=== PATIENT | female | born 1990 | race Hispanic/Latino ===

== ENCOUNTER 2020-05-07 08:29 | Outpatient (CLI) | payer OTHER, SELFPAY ==
--- NOTE | 2020-05-07 09:04 | PC.NURSE ---
called Dr. Burr notified pt here for R/O ROM. Negative ROM Plus, no contractions, FHTs 155 per Doppler. discharge order received
--- NOTE | 2020-05-11 10:41 | PM.OBTRLD ---
OB - Triage/Final Diagnosis Visit Information Comments/Additional reasons for admission: I have assessed the risk for this patient, Maria Victoria Wong, and determined that she would benefit from observation care. Final Diagnosis (1) False labor: Code(s): O47.9 - False labor, unspecified Status: Acute
== END 2020-05-07 09:07 | disposition home or self-care (01) ==
LOC: ANHOBOP 08:40 → ANHOBPP 08:41
PROVIDERS: PCP Family Medicine; Visit Provider Obstetrics & Gynecology
DX: O41.8X90 Other specified disorders of amniotic fluid and membranes, unspecified trimester, not applicable or unspecified (principal); Z3A.00 Weeks of gestation of pregnancy not specified
CPT/HCPCS: 84112; 99199

== ENCOUNTER 2020-07-03 10:25 | Outpatient (RCR) | payer OTHER, SELFPAY ==
[2020-07-03 11:56] LABS: Basophils Percent Auto 0.2 % (0.2-1.2); Eosinophils Absolute Auto 0.1 K/mm3 (0-0.3); Eosinophils Percent Auto 0.6 % (0-4.4); Hematocrit 35.5 % (37.0-47.0); Hemoglobin 11.8 g/dL (12.0-15.0); Immature Granulocyte Absolute 0.06 K/mm3 (0.00-0.031); Immature Granulocyte Percent A 0.5 % (0-0.5); Lymphocytes Absolute Auto 1.75 K/mm3 (0.9-3.2); Lymphocytes Percent Auto 15.5 % (18.3-44.2); Mean Corpuscular HGB Conc 33.2 g/dl (32-36); Mean Corpuscular Hemoglobin 29.8 pg (26-34); Mean Corpuscular Volume 89.6 fl (80-100); Monocytes Absolute Auto 0.6 K/mm3 (0.1-0.6); Monocytes Percent Auto 5.6 % (2.6-8.5); Neutrophils Absolute Auto 8.8 K/mm3 (1.3-6.7); Neutrophils Percent Auto 77.6 % (45.5-73.1); Platelet Count Result 164 k/mm3 (150-375); Red Blood Count 3.96 M/mm3 (4.2-5.4); Red Cell Distribution Width 12.5 % (11.5-14.5); White Blood Count 11.3 K/mm3 (4.5-10.0)
[2020-07-03 12:11] LABS: Glucose 1 Hour PP 50gm Dose 90 mg/dL
[2020-07-03 12:48] LABS: HIV 1/2 Ab P24 Ag Result Negative (Negative)
[2020-07-05] MEDS: RHO(D) IMMUNE GLOBULIN 300 MCG/2 ML SYRINGE IM (09:00)
== END 2020-10-01 23:59 | disposition home or self-care (01) ==
LOC: ANHLAB 10:25
PROVIDERS: PCP Family Medicine; Visit Provider Obstetrics & Gynecology
DX: Z11.4 Encounter for screening for human immunodeficiency virus [HIV] (principal); Z29.13 Encounter for prophylactic Rho(D) immune globulin; O36.0120 Maternal care for anti-D [Rh] antibodies, second trimester, not applicable or unspecified; Z3A.00 Weeks of gestation of pregnancy not specified
CPT/HCPCS: 36415; 82947; 85025; 85461; 86703; 90384; 96372; G0432; J2790

== ENCOUNTER 2020-07-06 12:19 | Emergency (ER) | payer OTHER, SELFPAY ==
--- NOTE | 2020-07-06 12:21 | ED.WOUNDLAC ---
HPI - Wound/Laceration General Chief Complaint: Wound/Laceration Stated Complaint: laceration Time Seen by Provider: 07/06/20 12:28 Source: patient and RN notes reviewed Mode of arrival: ambulatory Limitations: no limitations History of Present Illness HPI narrative: 30-year-old female who is 27 weeks presents after stepping on a sharp tach at a department store. Reports the tach went through her shoe. She denies any open wounds, bleeding. Denies any musculoskeletal pain, decreased sensation, strength, range of motion. Reports this happened prior to arrival. Reports she is not up-to-date on her tetanus shot Extremity Location: Right: foot Place: other (store) Patient tetanus UTD: No Context: accidental Related Data Allergies Allergy/AdvReac Type Severity Reaction Status Date / Time No Known Allergies Allergy Verified 07/05/20 08:57 Review of Systems Review of Systems: Narrative: CONSTITUTIONAL: Denies malaise, chills, sweats, or fever. SKIN: Denies lacerations, abrasions. Reports puncture wound MUSCULOSKELETAL: Denies musculoskeletal pain, decreased range of motion or strength NEUROLOGIC: Denies numbness, weakness All systems reviewed & are unremarkable except as noted in HPI and below PMFSH Comments At time of signature, agree with nursing past medical, surgical, social and family history. There is no relevant family history pertinent to the presenting complaint Exam Narrative: Exam Narrative: GENERAL: Well-appearing, well-nourished, and in no acute distress. HEAD: Normocephalic, atraumatic. EYES: PERRLA, conjunctivae clear NECK: Supple. CHEST: Speaks in full sentences. No respiratory distress. HEART: Regular rate and rhythm. Normal and equal peripheral pulses. EXTREMITIES: Right foot, digits of right foot have normal strength and sensation, normal range of motion. No edema or ecchymosis. 5/5 strength with ankle and flexion and extension. Normal sensation with sensitivity to light touch and pain. No point tenderness. No open wounds, no skin tenting, no devitalized tissue or atrophy, no trophic changes, no obvious deformity, alignment normal, nearby joints and structures intact. Distal pulses palpable and equal bilaterally, skin warm, dry, pink. Capillary refill less than 3 seconds. SKIN: Warm, dry, no rash. No visible wound, abrasion noted to the dorsal aspect the foot. NEURO: Alert and oriented x3. PSYCH: Normal mood and affect Course Course Emergency Course: Patient is aware of diagnosis, understands and agrees to treatment plan. Anticipatory guidance given. Patient agrees to follow-up as directed and is aware of reasons to seek care at the emergency department. Portions of this record may have been created with voice recognition software Vital Signs Vital signs: Reviewed. MDM - Wound/Laceration MDM Narrative Medical decision making narrative: Exam findings show no acute concerns or changes; patient is non-toxic appearing and is in no distress. Patient is appropriate for outpatient treatment and follow-up. Differential Diagnosis Differential diagnosis: Likely laceration, abrasion, avulsion of skin and other (Puncture wound) Critical Care Time Critical Care Time Critical Care Time: No Discharge Plan Discharge Clinical Impression: Puncture wound of foot Qualifiers: Encounter type: initial encounter Laterality: right Qualified Code(s): S91.331A - Puncture wound without foreign body, right foot, initial encounter Patient Disposition: Home, Self-Care Condition: Stable Instructions: Puncture Wound in the Foot (ED) Additional Instructions: If you notice bleeding please apply Band-Aid with antibiotic ointment. Wash your foot with soap and water, to prevent possible infection from puncture wound you can soak your foot in half warm water, half apple cider vinegar. If you have any new symptoms or other concerns please contact your primary care provider. If you have any urgent concerns please go
[2020-07-06 12:32] VITALS: BP 116/62; PULSE 80; RESP 16; TEMP 36.7; O2SAT 100
[2020-07-06] MEDS: TETANUS,DIPHTHERIA,AC PERTUSSIS ADULT (0.5 ML) BOOSTRIX IM (12:42)
== END 2020-07-06 12:47 | disposition home or self-care (01) ==
PROVIDERS: Emergency Provider Nurse Practitioner; PCP Family Medicine
DX: O9A.212 Injury, poisoning and certain other consequences of external causes complicating pregnancy, second trimester (principal); Z3A.27 27 weeks gestation of pregnancy; S91.331A Puncture wound without foreign body, right foot, initial encounter; W45.8XXA Other foreign body or object entering through skin, initial encounter; Z23 Encounter for immunization
CPT/HCPCS: 90471; 90715; 99212; G0463

== ENCOUNTER 2020-09-15 08:50 | Inpatient (IN) | payer OTHER, SELFPAY ==
[2020-09-15] VITALS (110 sets, daily range): BP systolic 46–168; BP diastolic 15–137; PULSE 63–293; RESP 16–19; TEMP 36.4–36.9; O2SAT 99–100; BMI 38.2
--- NOTE | 2020-09-15 09:23 | WPDHPUPDATE1 ---
History and Physical Update Update Date/Time: 09/15/20 09:23 30 yo at 38w3d who presents after SROM. Pt reports SROM at 0800. She endorses good FM. She denies any vaginal bleeding. Her is complicated by prior for breech presentation. Pt would like to TOLAC. History and Physical has been reviewed, including an updated exam of the patient. There are NO changes in the patient's condition. Risks, benefits, and alternatives have been discussed and questions answered. Patient agrees to proceed with procedure. A/P: 30 yo at 38w3d with SROM admit to L&D routine admission orders Rh neg, will need rhogam PP GBS neg SROM clear fluid cvx 1cm FHT cat 1 expectant management will augment with pitocin if necessary
--- OUTSIDE RECORDS SUMMARY | 2020-09-15 09:24 | XMS_ITS | Encounter Summary ---
:1990 Author Care Team Providers Name Role Phone Kirstin Burr DO Fish Bait Picker [phone] Reason for Visit return OB visit Assessment and Plan 1. Routine care ? [facility] ? CBC w/ auto diff ? HIV (1+2) Ab screen, serum ? Rh immune globulin screeni ng - rhogam workup and injection Discussion Note: None recorded.Patient educational handouts: No information available. Plan of Care Reminders Provider Appointments None ? ? recorded. Lab Glucose [facility] Tolerance Test, 06/22/2020 [facility] Gest[facility], 1-Hour ? CBC W/ Auto [facility] Health Diff 06/22/2020 [place] ? HIV (1+2) Ab [facility] Health Screen, Serum 06/22/2020 [place] ? Rh Immune [facility] Globulin Screening 06/22/2020 [place] Referral None ? ? recorded. Procedures None ? ? recorded. Surgeries None ? ? recorded. Imaging None ? ? recorded. Medications Name Start Date ? ?
--- OUTSIDE RECORDS SUMMARY | 2020-09-15 09:24 | XMS_ITS ---
:1990 Author Care Team Providers Name Role Phone GUILLERMINA CHEW DO Cement Gun Operator [phone] Allergies Code Code System Name Reaction Severity Status Onset 825238 RxNorm Milk ? ? Active ? NKDA ? Medications Name Status Start Date Stop Date ? ? alprazolam 0.5 mg tablet Completed ? 020 amoxicillin 875 mg-potassium Completed ? clavulanate 125 mg tablet benzonatate 200 mg capsule Completed ? 05/05 Take 1 capsule 3 times a day by oral route. bupropion HCl XL 150 mg 24 hr Active ? No t available tablet, extended release buspirone 5 mg tablet Active ? Not availa ble cefdinir 300 mg capsule Completed ? 03/16/19 19 Take 1 capsule every 12 hours by oral route for 10 days. cephalexin 500 mg capsule Active ? Not av ailable Cipro HC 0.2 %-1 % ear drops,suspension Completed ? 10/06/2017 INSTILL 3 DROPS INTO AFFECTED EAR(S) BY OTIC ROUTE EVERY 12 HOURS For 7 Days. Ciprodex 0.3 %-0.1 % ear Completed ? 018 drops,suspension ciprofloxacin 500 mg tablet Active ? Not available Claritin 10 mg tablet Completed 10/06/2017 12/08/2018 Take 1 tablet every day by oral route. clindamycin 1 %-benzoyl peroxide 5 Completed ? 07/14/2018 % topical gel clotrimazole 1 % vaginal cream Completed ? 0 05/23/2020 Insert 1 applicatorful every day by vaginal route for 7 days. doxycycline hyclate 100 mg capsule Completed ? 07/14/2018
--- OUTSIDE RECORDS SUMMARY | 2020-09-15 09:24 | XMS_ITS | Encounter Summary ---
:1990 Author Care Team Providers Name Role Phone Kirstin Burr DO Ad Compositor [phone] Reason for Visit Annual exam Assessment and Plan 1. Adult health examination Doing well 2. Gestation period, 36 weeks Discussion Note: None recorded.Patient educational handouts: No information available. Plan of Care Reminders Provider Appointments None ? ? recorded. Lab None ? ? recorded. Referral None ? ? recorded. Procedures None ? ? recorded. Surgeries None ? ? recorded. Imaging None ? ? recorded. Medications Name Start Date ? ? magnesium oxide 400 mg (241.3 mg magnesium) tablet ? Take 1 tablet twice a day by oral route. Notes: PNV Medications Administered None recorded. Vitals Height Weight BMI Blood Pressure 5 ft 3 in 215 lbs 38.1 kg/m2 122/76 mm[Hg] Results Lab Results None recorded. Allergies Code Code System Name Reaction Severity Onset 295992 RxNorm Milk ? ? ? NKDA ? ? ? Problems Name Status Onset Date Source ? Irritable B
--- OUTSIDE RECORDS SUMMARY | 2020-09-15 09:24 | XMS_ITS ---
:1990 Author Care Team Providers Name Role Phone AIDE TRISTAN MD Primary Care Provider Unavailable Allergies Code Code System Name Reaction Severity Status Onset 815549 RxNorm Milk ? ? Active ? NKDA ? Medications Name Status Start Date Stop Date ? ? alprazolam 0.5 mg tablet Completed ? 020 amoxicillin 875 mg-potassium Completed ? clavulanate 125 mg tablet benzonatate 200 mg capsule Completed ? 05/05 Take 1 capsule 3 times a day by oral route. bupropion HCl XL 150 mg 24 hr tablet, Completed ? 08/15/2019 extended release buspirone 5 mg tablet Completed ? 08/15/2019 cefdinir 300 mg capsule Completed ? 03/16/19 19 Take 1 capsule every 12 hours by oral route for 10 days. cephalexin 500 mg capsule Completed ? 2020 Cipro HC 0.2 %-1 % ear drops,suspension Completed ? 10/06/2017 INSTILL 3 DROPS INTO AFFECTED EAR(S) BY OTIC ROUTE EVERY 12 HOURS For 7 Days. Ciprodex 0.3 %-0.1 % ear Completed ? 018 drops,suspension ciprofloxacin 500 mg tablet Completed ? 05/2020 Claritin 10 mg tablet Completed ? 12/08/2018 Take 1 tablet every day by oral route. clindamycin 1 %-benzoyl peroxide 5 % Completed ? 07/14/2018 topical gel doxycycline hyclate 100 mg capsule Completed ? 07/14/2018 fluconazole 150 mg tablet Completed ? 2019 fluticasone propionate 50 mcg/actuation Completed ? 12/08/2018 nasal spray,suspension ibuprofen 800 mg tab
[2020-09-15 09:39] LABS: Basophils Percent Auto 0.2 % (0.2-1.2); Eosinophils Absolute Auto 0.1 K/mm3 (0-0.3); Eosinophils Percent Auto 0.5 % (0-4.4); Hematocrit 41.3 % (37.0-47.0); Hemoglobin 13.8 g/dL (12.0-15.0); Immature Granulocyte Absolute 0.03 K/mm3 (0.00-0.031); Immature Granulocyte Percent A 0.3 % (0-0.5); Lymphocytes Percent Auto 14.4 % (18.3-44.2); Mean Corpuscular HGB Conc 33.4 g/dl (32-36); Mean Corpuscular Hemoglobin 29.4 pg (26-34); Mean Corpuscular Volume 88.1 fl (80-100); Monocytes Absolute Auto 0.6 K/mm3 (0.1-0.6); Monocytes Percent Auto 5.6 % (2.6-8.5); Neutrophils Absolute Auto 8.3 K/mm3 (1.3-6.7); Platelet Count Result 146 k/mm3 (150-375); Red Blood Count 4.69 M/mm3 (4.2-5.4); Red Cell Distribution Width 13.9 % (11.5-14.5); White Blood Count 10.5 K/mm3 (4.5-10.0)
[2020-09-15] MEDS: LACTATED RINGERS 1,000 ML 125 ML IV CONT ×2 (11:04→11:42)
[2020-09-15] MEDS: fentaNYL CITRATE INJ (*CRX) 100 MCG/2 ML VIAL IV PUSH (11:11)
[2020-09-15] MEDS: OXYTOCIN 30 UNITS/NS 500 ML 30 UNITS/500 ML BAG IV CONT (14:03)
[2020-09-15] MEDS: OXYTOCIN 30 UNITS/NS 500 ML 30 UNITS/500 ML BAG 125 UNITS IV CONT (14:38)
--- NOTE | 2020-09-15 15:19 | PM.OBPRVD ---
OB - Delivery Note Procedure Delivery date: 09/15/20 Procedure: Patient was noted to be complete and the bed was set up for delivery. FHT were noted to be category 2 with repetitive lates after contractions. FHT would drop to the 70s after contractions. FHT would eventually return to the baseline. Pt was able to push the head to 2+. FHT continued to show recurrent decelerations and maternal pushing effort was inadequate. Patient positioned in stirrups with the bed broken, dorsal lithotomy. Her perineum was prepped and draped in the usual fashion. The perineal body was normal length. Pelvis felt to be adequate. + 2 station. Min/mod caput. Sagital suture palpated and found to be direct O-P. Phantom application of blades performed prior to placing left hand into vaginal sidewall. Left blade gently inserted along cover operator's hand to ensure no vag lacerations - advanced along the skull with the axillary prominence in a gentle fashion. In a similar fashion, the right blade was gently placed. Blade placement was then double checked to ensure adequate placement. The forceps shank articulated well in the midline. A fingerbreadth below the suture on either side was noted. With the next contraction, gentle downward pressure was applied in sync with the contraction / pushing effort. Adequate descent was noted. There were a total of 2 pulls, and the forceps were disarticulated as the head delivered. A nuchal cord x 1 was noted and easily reduced. The remainder of the infant was delivered atraumatically. A segment of cord taken for gases and sample collected as above. The fetus was delivered atraumatically and placed on the maternal abdomen. The cord was clamped and cut after 1 minute of life. The cord was double clamped and cut and a segment of cord was collected for cord gases. Cord blood was collected for blood type and Coomb's testing. The placenta delivered spontaneously and was noted to be intact. The perineum was inspected and there was a 3rd degree perineal laceration. The external anal sphincter was then grasped with 2 Allis clamps (1 on either side) for traction. Using of series of 4 horizontal and vertical mattress sutures of 2-0 vicryl, the posterior, inferior, superior, and anterior aspects of the muscle were reapproximated and suture ligated. A deep and long left sulcal tear was identified that extended to the cervix. Patient was then transferred to the OR for better visualization to repair the sulcal laceration. The apex was grasped and suture ligated with 3-0 vicryl. This was then closed in a running fashion to the introitus. The remainder of the laceration was closed in a standard fashion. A rectal exam was performed to ensure complete closure and no residual defects. She was instructed on this type of laceration, the importance of stool softeners and perineal care, and we will give one does of prophylactic antibiotics with Ancef. The vagina was packed to help prevent hematoma. The uterus was firm and good hemostasis was noted. The patient and fetus were stable in the delivery room. Intrapartal events: Ineffective Pushing, Ceph-Pelvic Disproportion and Deceleration Induction method: none Delivery monitor: external FHT Route of delivery: forceps (low forceps) Indication for instrumentation: nonreassuring FHR tracing Episiotomy description: None Laceration Description: Perineal - 3rd Degree and Vaginal - 3rd Degree (left sulcal to the level of the cervix) Delivery repair: vicryl Specimen: No Quantitative Blood Loss (ml): 550 Anesthesia type: Epidural Disposition: floor () Complications: 3rd degree perineal and sulcal laceration [place] Baby Date of : 09/15/20 Time of : 13:59 Weeks of gestation at delivery: 38 Infant gender: Male Weight (pounds): 6 Weight (ounces): 9 presentation: vertex position: Right Occiput Posterior Placenta delivery description: Spontaneous cord vessel description: Nuchal Cord score one m
[2020-09-15] MEDS: LACTATED RINGERS 1,000 ML 999 ML IV CONT (15:22)
[2020-09-15] MEDS: ceFAZolin 2 GM/D5W 50 ML 2 GM/50 ML BAG IVPB (15:24)
[2020-09-15 15:47] LABS: Hematocrit 31.2 % (37.0-47.0); Hemoglobin 10.2 g/dL (12.0-15.0); Immature Platelet Fraction Pct 15.8 % (0.9-11.2); Mean Corpuscular HGB Conc 32.7 g/dl (32-36); Mean Corpuscular Hemoglobin 29.1 pg (26-34); Mean Corpuscular Volume 89.1 fl (80-100); Mean Platelet Volume 13.1 fl (7.4-10.4); Platelet Count Result 151 k/mm3 (150-375); Red Cell Distribution Width 13.6 % (11.5-14.5); White Blood Count 21.2 K/mm3 (4.5-10.0)
[2020-09-15 16:14] LABS: Band Neutrophils Percent 2 % (0-6); Lymphocytes Absolute Manual 1.06 K/mm3 (1.1-4.5); Monocytes Absolute Manual 0.42 K/mm3 (0.1-0.90); Monocytes Percent Manual 2 % (3-9); Neutrophils Absolute Manual 19.71 K/mm3 (1.7-7.2); Neutrophils Percent Manual 91 % (46-73); Platelet Estimate Adequate (Adequate); Total Cells Counted 100
[2020-09-15] MEDS: HYDROcodone/acetaminophen (*CRX) 5-325 MG TABLET 1 TAB PO ×2 (17:40→23:36)
[2020-09-15] MEDS: IBUPROFEN 600 MG TABLET PO ×2 (17:41→23:35)
[2020-09-15] MEDS: BENZOCAINE 20% AER SPR (*SP) 56 GM CAN 1 SPRAY TOPICAL (17:42)
[2020-09-15] MEDS: WITCH HAZEL 40 PADS 1 PAD TOPICAL (17:42)
--- NOTE | 2020-09-15 18:59 | PC.NURSE ---
Patient transferred to post room #291 via wheelchair. Support person present. Oriented to unit, room, information board, rooming in, admission packet and security measures. Patient verbalizes understanding.
--- NOTE | 2020-09-15 20:01 | OBPPTRN ---
Per Gladis Gallegos stock or delivery clerk QBL was 550 cc.
[2020-09-15] MEDS: SENNA/DOCUSATE SODIUM TABLET 2 TAB PO (21:05)
[2020-09-16 04:00] VITALS: BP 96/56; PULSE 71; RESP 16; TEMP 36.1
[2020-09-16 05:57] LABS: Basophils Percent Auto 0.3 % (0.2-1.2); Eosinophils Percent Auto 0.2 % (0-4.4); Hematocrit 25.8 % (37.0-47.0); Hemoglobin 8.3 g/dL (12.0-15.0); Immature Granulocyte Absolute 0.07 K/mm3 (0.00-0.031); Immature Granulocyte Percent A 0.5 % (0-0.5); Immature Platelet Fraction Pct 15.7 % (0.9-11.2); Lymphocytes Absolute Auto 2.22 K/mm3 (0.9-3.2); Lymphocytes Percent Auto 17.1 % (18.3-44.2); Mean Corpuscular HGB Conc 32.2 g/dl (32-36); Mean Corpuscular Hemoglobin 28.3 pg (26-34); Mean Corpuscular Volume 88.1 fl (80-100); Mean Platelet Volume 13.7 fl (7.4-10.4); Monocytes Percent Auto 7.9 % (2.6-8.5); Neutrophils Absolute Auto 9.6 K/mm3 (1.3-6.7); Platelet Count Result 119 k/mm3 (150-375); Red Blood Count 2.93 M/mm3 (4.2-5.4); Red Cell Distribution Width 13.7 % (11.5-14.5)
[2020-09-16] MEDS: IBUPROFEN 600 MG TABLET PO ×3 (06:06→19:58)
[2020-09-16] MEDS: HYDROcodone/acetaminophen (*CRX) 5-325 MG TABLET 1 TAB PO ×4 (06:07→16:58)
[2020-09-16] MEDS: MULTIVIT/MIN/PREN/FOL AC/IRON TABLET 1 TAB PO (06:59)
[2020-09-16] MEDS: LANOLIN (LANSINOH) 7.5 GM CREAM 1 APPLIC TOPICAL (06:59)
[2020-09-16] MEDS: POLYSACCHARIDE IRON COMPLEX 150 MG CAPSULE PO ×2 (06:59→16:59)
[2020-09-16] MEDS: BENZOCAINE 20% AER SPR (*SP) 56 GM CAN 1 SPRAY TOPICAL (06:59)
[2020-09-16] MEDS: WITCH HAZEL 40 PADS 1 PAD TOPICAL (06:59)
[2020-09-16 07:00] VITALS: BP 97/57; PULSE 71; RESP 16; RESP 18; TEMP 36.3; O2SAT 100; O2SAT 99
--- NOTE | 2020-09-16 08:51 | PM.OBPNVD ---
OB - PN: Subj Subjective Date/time seen: 09/16/20 08:51 Patient comments: no complaints, pain well controlled and tolerating diet feeding status: exclusively breast feeding Narrative: patient doing well this AM. No complaints. Pain is well controlled. She reports minimal bleeding. She is ambulating and voiding without difficulty. She is tolerating PO. She denies N/V, fever, chills. OB - PN: Obj Data Labs CBC & Chem 7: 09/16/20 04:03 Labs: Laboratory Results - last 24 hr 09/15/20 09/15/20 09/15/20 09:33 12:52 15:39 WBC 10.5 H 21.2 H RBC 4.69 3.50 L Hgb 13.8 10.2 L D Hct 41.3 31.2 L MCV 88.1 89.1 MCH 29.4 29.1 MCHC 33.4 32.7 RDW 13.9 13.6 Plt Count 146 L 151 MPV 13.0 H 13.1 H Immature Gran % (Auto) 0.3 Not Reportable Neut % (Auto) 79.0 H Not Reportable Lymph % (Auto) 14.4 L Not Reportable [place] % (Auto) 5.6 Not Reportable Eos % (Auto) 0.5 Not Reportable Baso % (Auto) 0.2 Not Reportable Lymph # (Auto) 1.50 Not Reportable [place] # (Auto) 0.6 Not Reportable Eos # (Auto) 0.1 Not Reportable Baso # (Auto) 0.0 Not Reportable Abs Immat Gran (auto) 0.03 Not Reportable Absolute Neuts (auto) 8.3 H Not Reportable Absolute Nucleated RBC 0.0 Not Reportable Total Counted 100 Neutrophils % (Manual) 91 H Band Neutrophils % 2 Lymphocytes % (Manual) 5.0 L Monocytes % (Manual) 2 L Nucleated RBC % 0.0 Not Reportable Abs Neuts (Manual) 19.71 H Abs Lymphs (Manual) 1.06 L Abs Monocytes (Manual) 0.42 Platelet Estimate Adequate % Immature Plt Fraction 15.8 H Blood Type A Negative Antibody Screen Negative Baby's Blood Type Baby's HONEY 09/16/20 09/16/20 04:03 04:03 WBC 13.0 H RBC 2.93 L Hgb 8.3 L Hct 25.8 L MCV 88.1 MCH 28.3 MCHC 32.2 RDW 13.7 Plt Count 119 L MPV 13.7 H Immature Gran % (Auto) 0.5 Neut % (Auto) 74.0 H Lymph % (Auto) 17.1 L [place] % (Auto) 7.9 Eos % (Auto) 0.2 Baso % (Auto) 0.3 Lymph # (Auto) 2.22 [place] # (Auto) 1.0 H Eos # (Auto) 0.0 Baso # (Auto) 0.0 Abs Immat Gran (auto) 0.07 H Absolute Neuts (auto) 9.6 H Absolute Nucleated RBC 0.0 Total Counted Neutrophils % (Manual) Band Neutrophils % Lymphocytes % (Manual) Monocytes % (Manual) Nucleated RBC % 0.0 Abs Neuts (Manual) Abs Lymphs (Manual) Abs Monocytes (Manual) Platelet Estimate % Immature Plt Fraction 15.7 H Blood Type A Negative Antibody Screen TNP Baby's Blood Type A pos Baby's HONEY Negative OB - PN A/P Plan day: 1 Plan: routine care Comments: patient doing well H/H , will start iron BID encourage stool softener use twice daily with iron and opioid pain medications given 3rd degree laceration plan for circumcision today. Risks, benefits, alternatives discussed. consent obtained. continue routine care Time Spent With Patient Time: Total time spent is greater than 50% in coordination of care (as documented) at patient's floor/unit and/or counseling patient: Time with patient: less than 15 minutes Review of Systems Review of Systems: All systems reviewed & are unremarkable except as noted in HPI and below Exam Const: General: comfortable and no acute distress Resp: Effort & Inspection: normal respiratory effort Cardio: Rate: regular rate GI: GI Palp: Yes Soft to palpation and No Tenderness to palpation present (GI) Auscultation: normal bowel sounds Other: fundus firm and below umbilicus. Psych: Affect: normal affect
[2020-09-16] MEDS: SIMETHICONE 80 MG TAB.CHEW PO ×2 (12:21→16:59)
[2020-09-16] MEDS: SENNA/DOCUSATE SODIUM TABLET 2 TAB PO ×2 (12:23→16:59)
[2020-09-16 12:30] VITALS: BP 97/47; PULSE 71; PULSE 76; RESP 18; RESP 20; TEMP 36.3; O2SAT 98; O2SAT 99
[2020-09-16] MEDS: RHO(D) IMMUNE GLOBULIN 300 MCG/2 ML SYRINGE IM (16:50)
[2020-09-16 19:47] VITALS: BP 112/69; PULSE 90; RESP 18; TEMP 36.8; O2SAT 100
--- NOTE | 2020-09-17 00:31 | PC.NURSE ---
09/16/2020 at 2130 Patient viewed the discharge video Mother & Baby Care, The First Two Weeks . Patient was given the opportunity and encouraged to ask questions. Patient verbalized understanding of information shared and has been given the mother/baby guide for home reference.
--- NOTE | 2020-09-17 07:13 | PM.OBDSVD ---
DS: Admitting Diagnosis Admitting Diagnosis spontaneous rupture of membranes intrauterine at term OB - DS: Summary OB Procedures : None OB Procedures Intrapartum: Spontaneous Vag Delivery OB Procedures: : None and RHo (D) lg Status at Discharge Functional status at discharge: independent ambulation Overall status at discharge: patient is back to baseline Time Spent with Patient Time attestation: Total time spent providing and/or coordinating discharge services: Time spent: Less than 30 minutes Exam Const: General: comfortable and no acute distress Resp: Effort & Inspection: normal respiratory effort Auscultation: clear to auscultation bilaterally Cardio: Rate: regular rate GI: GI Palp: Yes Soft to palpation Auscultation: normal bowel sounds Other: Fundus firm below umbilicus Psych: Appearance: grossly normal Mental Status: mental status grossly normal Affect: normal affect DS: Data Data Completed and Pending Labs on day of discharge: Labs from last 24 hours 09/16/20 04:03 Blood Type A Negative Antibody Screen TNP Screen Negative Baby's Blood Type A pos Baby's HONEY Negative Doses of RhIg Required 1 Discharge Plan Discharge Discharging Clinician: Farhat Schreiber Patient Disposition: Home, Self-Care Activity: as tolerated and pelvic rest Diet: regular Discharge Instructions: call or return for temperature >100.4, bleeding >2 pads/hr for 2 hrs, pain not controlled with medications, signs/symptoms of mastitis Patient Instructions: Antibiotic Form, Perineal Tear with Delivery (DC), Vaginal Delivery (DC) Stand Alone Forms: General Discharge Information Follow-up/Referrals: Jose Antonio Christianson MD [Physician] - 4 Weeks Discharge Medications: New oxycodone-acetaminophen 5-325 mg tablet 1 tablet PO Q6H PRN (Reason: pain) Qty: 28 RF: 0 polysaccharide iron complex 150 mg iron Capsule 150 mg PO BIDWM Qty: 60 RF: 0 acetaminophen [Mapap (acetaminophen)] 325 mg Tablet 650 mg PO Q6H PRN (Reason: Mild Pain (1-3) Or Headache) Qty: 30 RF: 0 sennosides-docusate sodium [Senokot-S] 8.6-50 mg Tablet 2 tab PO BID Qty: 90 RF: 0 ibuprofen 600 mg Tablet 600 mg PO Q6H PRN (Reason: Cramping) Qty: 30 RF: 0 Continued PNV cmb#[id number]-ferrous fumarate-FA [] 28 mg iron- 800 mcg Tablet 1 tablet PO DAILY RF: 0 Date of admission: 09/15/20 08:50 Primary Care Provider: Elsi,Yvonne Rowland Admitting Provider: Jose Antonio Christianson Attending physician on admission: Jose Antonio Christianson Condition: Stable
[2020-09-17] MEDS: POLYSACCHARIDE IRON COMPLEX 150 MG CAPSULE PO (08:05)
[2020-09-17] MEDS: SENNA/DOCUSATE SODIUM TABLET 2 TAB PO (08:06)
[2020-09-17] MEDS: IBUPROFEN 600 MG TABLET PO (08:06)
[2020-09-17] MEDS: MULTIVIT/MIN/PREN/FOL AC/IRON TABLET 1 TAB PO (08:06)
[2020-09-17 08:15] VITALS: BP 120/65; PULSE 95; RESP 16; TEMP 36.8; O2SAT 100
--- NOTE | 2020-09-17 09:00 | PC.NURSE ---
Mother called out for assist with latch due to tenderness and infant is acting fussy after feedings. Mother reports 1st child, now 6 without issue. Infant was fussy during the night and mother supplemented and feels she will supplement until her milk is in. Reviewed has signs of adequate intake at this time and supplementing is her choice. Suggested mother breastfeed first then offer small amounts after with paced feeding. is able to freely thrust tongue past gum ridge and flange both lips. Skin is intact on both nipples, no redness and bruising noted. Reviewed feeding cues, frequencies, duration of feedings, feeding elimination flow sheet, and signs of adequate intake. Demonstrated stimulation techniques to wake infant for feeding. Assisted with infant to breast. Reviewed positioning/alignment in cross cradle, holding breast in ?U? hold and guided asymmetrical latch on. Discussed rational for each. Mother is able to latch independently with correct latch. nursed eagerly, with steady draws and frequent swallowing noted. Suggested mother stimulate while feeding to increase stimulate, increase intake and to assist with maintaining deep latch. Reviewed signs of a correct latch, effective nursing and suck swallow ratio. would slip to shallow latch, mother reports tenderness. Demonstrated how to adjust latch more deeply while feeding. Mother reports she can feel change in latch with no tenderness. Nipple care reviewed of lanolin after feedings, warm compresses as needed. Mother is planning discharge today. Mother is able to independently latch with appropriate positioning/alignment. She denies any nipple discomfort, is feeding as required and waking to feed if needed. has had at least 8 effective feedings in the past 24 hours, and is currently meeting outcomes for weight, output, jaundice and feeding frequencies. Mother states she feels confident to continue effective at home supplementing until her milk is in. Reviewed transition to breast milk, signs of adequate intake, and engorgement/relief. Instructed to call ICP if intake/output less than required. Reviewed regular medications mother is taking. Information provided per Sofy. Reviewed community resources on the [employer] website and in the Mom/Baby guide. Information on outpatient services provided. Mother has no further questions at this time.
[2020-09-17 09:52] LABS: Rapid Plasma Reagin Non-Reactive (NonReactive)
[2020-09-18 10:10] VITALS: BP 115/71; PULSE 77; RESP 16; TEMP 37.1; O2SAT 99
== END 2020-09-17 11:01 | disposition home or self-care (01) | DRG 806 ==
LOC: ANHLDR 09:31 → ANHOB2 09-17 07:15 → ANHLDR 09-18 10:34 → ANHOB2 09-18 10:34
PROVIDERS: Admitting Provider Student in an Organized Health Care Education/Training Program; PCP Family Medicine; Visit Provider Student in an Organized Health Care Education/Training Program
DX: O34.211 Maternal care for low transverse scar from previous cesarean delivery (principal); O71.4 Obstetric high vaginal laceration alone; Z37.0 Single live birth; O69.81X0 Labor and delivery complicated by cord around neck, without compression, not applicable or unspecified; O76 Abnormality in fetal heart rate and rhythm complicating labor and delivery; Z3A.38 38 weeks gestation of pregnancy
CPT/HCPCS: 36415; 84112; 85025; 85055; 85461; 86592; 86850; 86900; 86901; 90384; A9270; J0690; J2590; J2790; J2795; J3010; J7120

== ENCOUNTER 2021-09-25 11:18 | Outpatient (CLI) | payer OTHER, SELFPAY | END 2021-09-25 11:19 | disposition home or self-care (01) | PROVIDERS: PCP Family Medicine; Visit Provider Obstetrics & Gynecology | DX: Z01.812 Encounter for preprocedural laboratory examination (principal); R10.2 Pelvic and perineal pain | CPT/HCPCS: 36415; 86850; 86900; 86901 ==

== ENCOUNTER 2021-09-27 00:44 | Day surgery (SDC) | payer OTHER, SELFPAY ==
[2021-09-23 08:41] VITALS: BMI 37.9
--- NOTE | 2021-09-23 08:48 | PC.NURSE ---
Report to the Outpatient Waiting Room, entrance under the green pavilion located off [facility], at time 11:30 on date 09/27/21. OR Time: 1:30. - You and your visitor will be asked a series of questions to screen for COVID 19 for your protection. - Only one visitor is allowed at this time. - The patient visitor is requested to leave or wait in car when not with patient. - A mask is required within the hospital. Patients may have clear liquids (water, carbonated beverages, clear teas, apple juice) until 3 hours prior to surgery with a maximum of 20 ounces. - No food from midnight until time of surgery Take the following medications with a SIP of water the morning of surgery: N/A Medications to discontinue per physician: N/A Date to take last dose: N/A Please no make-up, nail bulgarian, hairspray, perfume, deodorant, or body powder the day of surgery. No jewelry (including any body piercings) or valuables the day of surgery, leave them at home. Please take a shower or bath the night before, or the morning of, surgery with an antibacterial soap. Wear comfortable, loose fitting clothing. - Jewelry must be removed prior to entering the operating room. Rings and piercings that are not removed may be cut off. - The hospital will not accept responsibility for valuables. - Please leave all valuables, including medications, at home the day of surgery. If you are going home after surgery, a licensed corrugated fastener driver must drive you home. - NO public transportation without another adult. - We recommend that an adult stay with you for 24 hours following discharge. - We also recommend that you do not drive, make important decision, drink alcoholic beverages, or take any drugs that were not prescribed by your health care provider for at least 24 hours after your discharge time. Follow any additional instructions given to you from your surgeon. If you or anyone in your household have experienced Covid symptoms in the past week, please notify your surgeon or the nurse liaison at the phone number below for possible testing. Telephone instructions given to PT - ARLEN WARD and asked if any additional questions and then verbalized understanding. Patient advised to call surgeon office or pre surgery nurse liaison [phone] if any additional questions.
--- NOTE | 2021-09-23 17:42 | PM.IMHP ---
H&P: HPI History of Present Illness Date/Time: 09/23/21 17:42 Chief Complaint: Pelvic pain Narrative: Since 31-year-old 2 para 2 admitted for laparoscopy secondary to severe pelvic pain. She has had no success with medical therapy. She underwent ultrasound which showed free fluid in the cul-de-sac but an otherwise unremarkable ultrasound. There is a strong family history of endometriosis and she opts for laparoscopy. Risks and benefits reviewed including but not exclusive of , aspiration pneumonia, bleeding, transfusion, perforation perforation injury to bowel, bladder, ureters, or other internal organs with need for open laparotomy. She received the [employer] handout entitled laparoscopy. She had all questions answered. She asked to proceed PMFSH Family History Family History Other No pertinent family history Social History Social History Smoking status: Never smoker Second hand tobacco smoke exposure: No Alcohol intake: current Drinks per week: 1 Substance use: current Substance use type: marijuana Other substance usage details: EDIBLES Gender identity (if verbalized by the patient): Female Spiritual care concerns: No Meds Home Medications and Allergies Home Medications Medication Instructions Recorded Confirmed Type No Home Medications 09/23/21 09/23/21 History Allergies Allergy/AdvReac Type Severity Reaction Status Date / Time No Known Allergies Allergy Verified 09/23/21 08:40 Exam Const: General: cooperative and healthy appearing Orientation/consciousness: oriented to person HENMT: Head: normal to inspection Chest: Chest palpation & inspection: normal inspection of the chest Resp: Effort & Inspection: normal respiratory effort Cardio: Rate: regular rate Rhythm: regular rhythm GI: Inspection: normal to inspection : External Female Exam: normal external appearance Speculum Exam - Vagina: normal appearance of the vagina Speculum Exam - Cervix: normal appearance of the cervix and Cervical os closed Bimanual exam- vagina & uterus: enlarged Bimanual Exam- Adnexa, other: cul-de-sac tenderness Assessment and Plan Assessment and plan (1) Pelvic pain: Code(s): R10.2 - Pelvic and perineal pain Status: Acute Plan Diagnostic laparoscopy
[2021-09-27] VITALS (8 sets, daily range): BP systolic 87–114; BP diastolic 47–76; PULSE 62–101; RESP 14–24; TEMP 36.1–36.4; O2SAT 96–100
--- NOTE | 2021-09-27 06:27 | WPDHPUPDATE1 ---
History and Physical Update Update Date/Time: 09/27/21 06:27 History and Physical has been reviewed, including an updated exam of the patient. There are NO changes in the patient's condition. Risks, benefits, and alternatives have been discussed and questions answered. Patient agrees to proceed with procedure.
[2021-09-27] MEDS: ACETAMINOPHEN 500 MG TABLET 1000 MG PO (11:53)
[2021-09-27] MEDS: KETOROLAC 15 MG/ML VIAL (*BKC) IV PUSH (12:00)
[2021-09-27] MEDS: LACTATED RINGERS 1,000 ML 30 ML IV CONT ×2 (12:00→14:18)
--- NOTE | 2021-09-27 12:38 | P.PNAN_ITS ---
Anes - Initial Pre Proc Eval Procedure: Operation Date: 09/27/21 13:30 Proposed Procedures p Diagnostic Laparoscopy - Denilson Acosta MD Date/Time: 09/27/21 12:38 Surgeon: Denilson Acosta MD Pre Op Diagnosis: Pelvic Pain Patient Data Age: 31 Gender: F Height: 1.6 m Weight: 97.86 kg Last Vital Signs Temp 97.6 F 09/27/21 11:38 Pulse 67 09/27/21 11:38 Resp 20 09/27/21 11:38 BP 113/58 L 09/27/21 11:38 Pulse Ox 100 09/27/21 11:38 O2 Del Method Room Air 09/27/21 11:38 Allergies Allergy/AdvReac Type Severity Reaction Status Date / Time No Known Allergies Allergy Verified 09/27/21 11:50 Home Medications Medication Instructions Recorded Confirmed Type hydrocodone 5 mg-acetaminophen 325 1 tablet PO Q4H PRN pain #30 tabs 09/27/21 Rx mg tablet Patient hx anesthesia problems: none Family hx anesthesia problems: none Results Review: All pre-operative results and documents have been reviewed as part of the pre- operative evaluation. [facility] Family History Family History Other No pertinent family history Social History Social History Smoking status: Never smoker Second hand tobacco smoke exposure: No Alcohol intake: current Drinks per week: 1 Substance use: current Substance use type: marijuana Other substance usage details: EDIBLES Living arrangements: with family Gender identity (if verbalized by the patient): Female Spiritual care concerns: No Anes - Eval Final PreProcedure Day of Procedure 09/27/21 12:38 Patient weight: obese Heart: regular rate and rhythm Lungs: clear to auscultation Airway: Mallampati scale class II Neurological: alert and oriented Last oral intake: >/= 8 hours ASA classification: II Emergent: no Anesthetic plan: proceed Anesthesia type and monitoring: general ETT and standard monitoring Results Review: All pre-operative results and documents have been reviewed as part of the pre- operative evaluation. Informed Consent: The patient's anesthetic plan and its attendant risks and benefits were discussed with the patient/family/POA. Questions were solicited and answers provided to the satisfaction of the patient/family/POA.
--- NOTE | 2021-09-27 13:23 | P.OP_ITS ---
Procedure Note - Detailed Date of Procedure 09/27/21 Pre-op Diagnosis Pelvic Pain Post-op Diagnosis Other (The endometriosis and bilateral ovarian cyst) Procedure Performed Laparoscopic destruction of bilateral ovarian cysts and endometriosis Surgeon Denilson Acosta MD Anesthesia General Indications Since 31-year-old female with severe pelvic pain Findings Normal-appearing uterus and tubes. Bilateral simple ovarian cyst. The blistered area of endometriosis on the left uterosacral ligament. Of 20cc of serosanguineous fluid in the cul-de-sac. Normal-appearing appendix. Normal- appearing gallbladder and liver edge Description of Procedure The patient was prepped and draped in the normal sterile fashion placed in the dorsal lithotomy position. Under excellent general trach anesthesia weighted speculum placed in posterior fornix vagina. Cervix grasped with a single-tooth tenaculum. Cannula was inserted to the cervix and attached to the single-tooth. The bladder was then drained of clear urine. The weighted speculum was removed. The gloves were changed An infraumbilical incision. Veress needle passed in the abdomen. Abdomen filled with CO2 gas [id number]. 5mm trocar advanced with the Optiview under direct visualization assuring no injury. Patient placed in Trendelenburg and a suprapubic incision made. The 5mm trocar advanced under direct visualization assuring no injury. The above findings were noted the 20cc of serosanguineous fluid was removed from the cul-de-sac irrigation was undertaken. Small blister was seen on the left uterosacral ligament and this was cauterized at 35 w per 2nd. Ovarian cyst in the form of simple cysts were seen bilaterally on the ovaries and these were drained of clear fluid. The appendix and gallbladder appeared within normal limits. Irrigation undertaken to pelvis till clean. The in fluid was removed. The gas removed then from the abdomen. The trocars removed and the incisions closed with 4 Monocryl and glue. Instruments removed from the vagina. The patient was awakened and went to recovery in satisfactory condition. All sponge, needle, instrument counts were correct. There were no immediate complications Estimated Blood Loss 5 Drains No Packing No Pathology None sent Complications No immediate complications Condition Stable Disposition PACU
[2021-09-27] MEDS: fentaNYL CITRATE INJ (*CRX) 100 MCG/2 ML VIAL 25 MCG IV PUSH ×2 (14:10→14:13)
[2021-09-27] MEDS: oxyCODONE HCL (*CRX) 5 MG TAB IR PO (14:57)
== END 2021-09-27 15:22 | disposition home or self-care (01) ==
PROVIDERS: PCP Family Medicine; Visit Provider Obstetrics & Gynecology
PROC: (CPT 49320; principal; 2021-09-27 13:30)
DX: R10.2 Pelvic and perineal pain (principal); N83.202 Unspecified ovarian cyst, left side; N83.201 Unspecified ovarian cyst, right side; N80.3 Endometriosis of pelvic peritoneum; F12.90 Cannabis use, unspecified, uncomplicated; E66.9 Obesity, unspecified; Z68.38 Body mass index [BMI] 38.0-38.9, adult
CPT/HCPCS: 58662; 36415; 86850; 86900; 86901; A9270; J0330; J1100; J1885; J2250; J2405; J2704; J3010; J7030; J7120

== ENCOUNTER 2022-06-05 14:36 | Emergency (ER) | payer OTHER, SELFPAY ==
[2022-06-05 14:44] VITALS: BP 113/80; PULSE 88; RESP 16; TEMP 36.9; O2SAT 99
--- NOTE | 2022-06-05 14:52 | ED.EAR ---
HPI - Ear Problem General Chief complaint: Ear Stated complaint: EARACHE Time Seen by Provider: 06/05/22 14:52 Source: patient Mode of arrival: ambulatory Limitations: no limitations History of Present Illness HPI Narrative: 32 y/o female presented for c/o bilateral ear pain since yesterday. States left is worse than right. Endorses ringing in ears for several months, for which she has seen ENT and was told nothing was wrong. She currently endorses headache and mild sinus congestion. Took ibuprofen for pain. Denies n/v/d/f/c. Complaint: ear pain Related Data Allergies Allergy/AdvReac Type Severity Reaction Status Date / Time No Known Allergies Allergy Verified 03/31/22 14:47 Review of Systems Review of Systems: CONSTITUTIONAL: Denies malaise, chills, or fever. EYES: Denies visual changes, redness, or discharge. ENT: Denies sinus pain, sore throat. Reports ear pain CARDIOVASCULAR: Denies chest pain, palpitations, or edema. RESPIRATORY: Denies cough or dyspnea. GASTROINTESTINAL: Denies abdominal pain, nausea, vomiting, diarrhea SKIN: Denies rash or itching. MUSCULOSKELETAL: Denies myalgia. NEUROLOGIC: Denies headache. All systems reviewed & are unremarkable except as noted in HPI and below PMFSH Family History Family History Other No pertinent family history Social History Social History Smoking status: Never smoker Second hand tobacco smoke exposure: No Alcohol intake: current Drinks per week: 1 Substance use: current Substance use type: marijuana Other substance usage details: EDIBLES Lack of Transportation: No Lack of Food: Never True Current Housing: I Have Housing Concerned About Future Housing: No Difficulty Paying Gas/Electric Bills: No Difficulty Paying for Meds: No Currently Unemployed: No Education: High School Diploma/GED Difficulty w/ Childcare or Family Care: No Living arrangements: with family Gender identity (if verbalized by the patient): Female Spiritual care concerns: No Comments At time of signature, agree with nursing past medical, surgical, social and family history. There is no relevant family history pertinent to the presenting complaint Exam Narrative: GENERAL: Well-appearing, well-nourished, and in no acute distress. HEAD: Normocephalic EYES: PERRLA, conjunctivae clear ENT: Nares clear. Mucous membranes moist. TM pearly le with dull light reflex bilaterally, left effusion; no tragal tenderness. Oropharynx not erythematous. NECK: Supple. No lymphadenopathy CHEST: Clear to auscultation, breath sounds equal. No wheezing, rhonchi, rales, or stridor. No respiratory distress, speaks in full sentences. HEART: Regular rate and rhythm. No murmur heard. SKIN: Warm, dry, no rash. NEURO: Alert and oriented x3. PSYCH: Normal mood and affect Course Course Emergency Course: Patient is aware of diagnosis, understands and agrees to treatment plan. Anticipatory guidance given. Patient agrees to follow-up as directed and is aware of reasons to seek care at the emergency department. Portions of this record may have been created with voice recognition software Level of Care: Express Care Visit Vital Signs Vital signs: Vital Signs Temperature 98.4 F 06/05/22 14:44 Pulse Rate 88 06/05/22 14:44 Respiratory Rate 16 06/05/22 14:44 Blood Pressure 113/80 06/05/22 14:44 Pulse Oximetry 99 06/05/22 14:44 Temperature 98.4 F 06/05/22 14:44 Pulse Rate 88 06/05/22 14:44 Respiratory Rate 16 06/05/22 14:44 Blood Pressure 113/80 06/05/22 14:44 Pulse Oximetry 99 06/05/22 14:44 Reviewed Medical Decision Making MDM Narrative Medical decision making narrative: Discussed PE findings with pt. Per notes patient was seen by ENT in [facility] for similar complaints, and suspected ear pain may be r/t chronic inflammation of unkn
== END 2022-06-05 15:02 | disposition home or self-care (01) ==
PROVIDERS: Emergency Provider Nurse Practitioner Family; PCP Family Medicine
DX: H65.02 Acute serous otitis media, left ear (principal)
CPT/HCPCS: 99213; G0463

== ENCOUNTER 2022-08-09 08:44 | Emergency (ER) | payer OTHER, SELFPAY ==
[2022-08-09 09:06] VITALS: BP 110/75; PULSE 74; RESP 16; TEMP 36.5; O2SAT 100
--- NOTE | 2022-08-09 09:35 | ED.FEMALEGU ---
HPI - Female Genitourinary General Chief complaint: Urogenital-Female Stated complaint: UTI SYMPTOMS Time Seen by Provider: 08/09/22 09:35 Source: patient, RN notes reviewed and old records reviewed Mode of arrival: ambulatory Limitations: no limitations History of Present Illness HPI Narrative: 32 year old female who presents to express care with complaints of burning with urination, frequency, cloudy urine with foul odor since 2 days ago.Patient reports that she has taken AZO for her symptoms with last dose last evening. Patient reports lower back pain and also supra pubic discomfort has been taking some Ibuprofen also for her symptoms. Patient reports that she has not had any fevers but she has been experiencing some chills, denies any nausea or vomiting. Patient denies any concern for STD exposure. MD elicited complaint: UTI Pertinent past history: other ( UTI) Onset (ago): day(s) ( 2 days ago) Location of symptoms: suprapubic and low back Severity scale (1-10): 10 Vaginal discharge: none Treatment prior to arrival: OTC urinary analgesics (AZO) and other (Ibuprofen) Related Data Allergies Allergy/AdvReac Type Severity Reaction Status Date / Time No Known Allergies Allergy Verified 08/09/22 09:12 Review of Systems Review of Systems: CONSTITUTIONAL: Denies fever, positive chills, no sweats. CARDIOVASCULAR: Denies chest pain, palpitations, or edema. RESPIRATORY: Denies cough or dyspnea. GASTROINTESTINAL: reports suprapubic abdominal pain, no nausea, vomiting, or diarrhea. GENITOURINARY: Reports dysuria, frequency, urgency. Denies flank pain or hematuria. SKIN: Denies rash or itching. MUSCULOSKELETAL: reports low back pain or myalgia. Denies CVA tenderness NEUROLOGIC: Denies headache All systems reviewed & are unremarkable except as noted in HPI and below PMFSH Past Medical History Medical History Sleep apnea treated with continuous positive airway pressure (CPAP) UTI (urinary tract infection) Surgical History Surgical History Previous section Strawn teeth extracted Family History Family History Other No pertinent family history Social History Social History Smoking status: Never smoker Second hand tobacco smoke exposure: No Alcohol intake: current Drinks per week: 1 Substance use: current Substance use type: marijuana Other substance usage details: EDIBLES Lack of Transportation: No Lack of Food: Never True Current Housing: I Have Housing Concerned About Future Housing: No Difficulty Paying Gas/Electric Bills: No Difficulty Paying for Meds: No Currently Unemployed: No Education: High School Diploma/GED Difficulty w/ Childcare or Family Care: No Living arrangements: with family Gender identity (if verbalized by the patient): Female Spiritual care concerns: No Comments At time of signature, agree with nursing past medical, surgical, social and family history. There is no relevant family history pertinent to the presenting complaint Exam Narrative: GENERAL: Well-appearing, well-nourished, and in no acute distress. HEAD: Normocephalic, atraumatic. NECK: Supple.no lymphadenopathy CHEST: Clear to auscultation. No respiratory distress.SAO2 100% on room air HEART: Regular rate and rhythm. No murmur heard. Normal peripheral pulses. ABDOMEN: Soft, tender suprapubic abdomen, nondistended, normal active bowel sounds. No CVA tenderness on exam EXTREMITIES: Normal range of motion. No edema. SKIN: Warm, dry, no rash. NEURO: No focal deficits. Alert and oriented x3. Course Course Emergency Course: Patient is aware of diagnosis, understands and agrees to treatment plan.? Anticipatory guidance given.? Patient agrees to follow-up
== END 2022-08-09 09:54 | disposition home or self-care (01) ==
PROVIDERS: Emergency Provider Registered Nurse; PCP Family Medicine
DX: N39.0 Urinary tract infection, site not specified (principal); G47.30 Sleep apnea, unspecified
CPT/HCPCS: 81003; 87086; 99213; G0463

== ENCOUNTER 2022-08-11 16:28 | Emergency (ER) | payer OTHER, SELFPAY ==
[2022-08-11 16:31] VITALS: BP 142/88; PULSE 73; RESP 18; TEMP 37.3; O2SAT 98
[2022-08-11 16:48] LABS: Basophils Absolute Auto 0.1 K/mm3 (0.0-0.1); Basophils Percent Auto 0.6 % (0.2-1.2); Eosinophils Absolute Auto 0.1 K/mm3 (0-0.3); Eosinophils Percent Auto 1.2 % (0-4.4); Hematocrit 40.6 % (37.0-47.0); Hemoglobin 13.7 g/dL (12.0-15.0); Immature Granulocyte Absolute 0.04 K/mm3 (0.00-0.031); Immature Granulocyte Percent A 0.4 % (0-0.5); Lymphocytes Absolute Auto 2.73 K/mm3 (0.9-3.2); Lymphocytes Percent Auto 27.2 % (18.3-44.2); Mean Corpuscular HGB Conc 33.7 g/dl (32-36); Mean Corpuscular Hemoglobin 30.4 pg (26-34); Mean Platelet Volume 12.1 fl (7.4-10.4); Monocytes Absolute Auto 0.7 K/mm3 (0.1-0.6); Monocytes Percent Auto 7.2 % (2.6-8.5); Neutrophils Absolute Auto 6.4 K/mm3 (1.3-6.7); Neutrophils Percent Auto 63.4 % (45.5-73.1); Platelet Count Result 197 k/mm3 (150-375); Red Blood Count 4.51 M/mm3 (4.2-5.4); Red Cell Distribution Width 11.9 % (11.5-14.5)
[2022-08-11 17:03] LABS: Alanine Aminotransferase 21 U/L (6-35); Albumin Level 4.4 g/dL (3.5-5.1); Alkaline Phosphatase 50 U/L (38-126); Anion Gap 6 mmol/L (8-16); Aspartate Amino Transferase 27 U/L (14-36); Bilirubin,Total 0.5 mg/dL (0.2-1.3); Blood Urea Nitrogen 11 mg/dL (7-17); Calcium 8.8 mg/dL (8.4-10.2); Carbon Dioxide 30 mmol/L (22-30); Chloride 103 mmol/L (98-107); Estimated CRCL calculation 154 ml/min; Estimated Glomerular Filt Rate > 60; Glucose 93 mg/dL (65-110); Potassium 4.3 mmol/L (3.4-5.0); Sodium 139 mmol/L (137-145)
--- NOTE | 2022-08-11 21:15 | PC.NURSE ---
pt called to go back to room, no response x2
== END 2022-08-11 21:15 | disposition left against medical advice (07) ==
PROVIDERS: Emergency Provider Emergency Medicine; PCP Family Medicine
DX: M54.50 Low back pain, unspecified (principal)
CPT/HCPCS: 36415; 80053; 85025; 99199

== ENCOUNTER 2023-04-06 10:20 | Outpatient (RCR) | payer OTHER, SELFPAY ==
[2023-04-06] MEDS: RHO(D) IMMUNE GLOBULIN 300 MCG/2 ML SYRINGE IM (14:36)
== END 2023-07-05 23:59 | disposition home or self-care (01) ==
LOC: ANHLAB 10:20
PROVIDERS: PCP Emergency Medicine; Visit Provider Obstetrics & Gynecology
DX: Z29.13 Encounter for prophylactic Rho(D) immune globulin (principal); O36.0190 Maternal care for anti-D [Rh] antibodies, unspecified trimester, not applicable or unspecified; Z3A.00 Weeks of gestation of pregnancy not specified
CPT/HCPCS: 36415; 85461; 86850; 86900; 86901; 90384; 96372; J2790

== ENCOUNTER 2023-05-11 21:26 | Outpatient (CLI) | payer OTHER, SELFPAY ==
[2023-05-11 22:09] LABS: Add Urine Microscopic? YES; Appearance Urine Cloudy (Clear); Bacteria Urine None Seen /hpf; Bilirubin Urine Negative (Negative); Blood Urine Negative (Negative); Color Urine Yellow (Yellow); Glucose Urine UA Negative (Negative); Ketones Urine Negative (Negative); Leukocyte Esterase Ur Negative LEU/UL (Negative); Need Manual Microscopic Reviewed; Nitrate Urine Negative (Negative); Non Pathogenic Casts 0-2; Protein Urine Negative (Negative); RBC Urine 0-2 /hpf (0-2); Specific Grav Ur 1.003 (1.001-1.035); Squamous Epithelial Cell Urine Moderate /hpf (Few); Urobilinogen Urine 0.2 mg/dL (<2.0); WBC Urine 0-5 /hpf (0-3); pH Urine 7.5 (5.0-9.0)
[2023-05-11 22:21] VITALS: BP 102/60; PULSE 92
--- NOTE | 2023-05-12 05:59 | P.PNOB_ITS ---
OB - Triage/Final Diagnosis Visit Information Date of evaluation: 05/11/23 Reason for evaluation: threatened labor Comments/Additional reasons for admission: I have assessed the risk for this patient, Maria Victoria Wong, and determined that she would benefit from observation care. Evaluation Laboratory results: Laboratory Tests 05/11/23 21:51 Urine Color Yellow Urine Appearance Cloudy H Urine pH 7.5 Ur Specific [place] 1.003 Urine Protein Negative Urine Glucose (UA) Negative Urine Ketones Negative Ur Blood (Man) Negative Urine Nitrate Negative Urine Bilirubin Negative Urine Urobilinogen 0.2 Add Ur Microanalysis Reviewed Leukocyte Esterase Rfl Negative Urine RBC 0-2 Urine WBC 0-5 Ur Squamous Epith Cells Moderate Urine Bacteria None seen Urine Casts 0-2 Vital signs: Vital Signs - 24 hr 05/11/23 22:21 Pulse Rate 92 Blood Pressure 102/60
== END 2023-05-11 22:30 | disposition home or self-care (01) ==
LOC: ANHOBOP 21:35 → ANHOBPP 21:47
PROVIDERS: PCP Emergency Medicine; Visit Provider Obstetrics & Gynecology
DX: O42.90 Premature rupture of membranes, unspecified as to length of time between rupture and onset of labor, unspecified weeks of gestation (principal); Z3A.00 Weeks of gestation of pregnancy not specified
CPT/HCPCS: 59025; 84112; 99199

== ENCOUNTER 2023-06-24 05:50 | Inpatient (IN) | payer OTHER, SELFPAY ==
[2023-06-24] VITALS (81 sets, daily range): BP systolic 60–127; BP diastolic 29–101; PULSE 48–165; RESP 16–18; TEMP 36.4–36.6; O2SAT 83–100; BMI 41.0
[2023-06-24 06:27] LABS: Basophils Percent Auto 0.3 % (0.2-1.2); Eosinophils Absolute Auto 0.1 K/mm3 (0-0.3); Eosinophils Percent Auto 0.7 % (0-4.4); Hematocrit 37.2 % (37.0-47.0); Hemoglobin 12.5 g/dL (12.0-15.0); Immature Granulocyte Absolute 0.06 K/mm3 (0.00-0.031); Immature Granulocyte Percent A 0.6 % (0-0.5); Lymphocytes Absolute Auto 1.88 K/mm3 (0.9-3.2); Lymphocytes Percent Auto 17.9 % (18.3-44.2); Mean Corpuscular HGB Conc 33.6 g/dl (32-36); Mean Corpuscular Hemoglobin 29.2 pg (26-34); Mean Corpuscular Volume 86.9 fl (80-100); Mean Platelet Volume 12.6 fl (7.4-10.4); Monocytes Absolute Auto 0.6 K/mm3 (0.1-0.6); Monocytes Percent Auto 5.8 % (2.6-8.5); Neutrophils Absolute Auto 7.9 K/mm3 (1.3-6.7); Neutrophils Percent Auto 74.7 % (45.5-73.1); Platelet Count Result 141 k/mm3 (150-375); Red Blood Count 4.28 M/mm3 (4.2-5.4); Red Cell Distribution Width 14.3 % (11.5-14.5); White Blood Count 10.5 K/mm3 (4.5-10.0)
--- NOTE | 2023-06-24 06:36 | PM.IMHP ---
H&P: HPI History of Present Illness Date/Time: 06/24/23 06:36 Chief Complaint: Term for induction Narrative: 33-year-old 3 para 2 at 40 weeks gestation for induction of labor. She has a history of a with a successful . Her last menstrual was 09/12/2022, EDC is 06/23/2023, placing her at 40-,1/7 weeks gestation. Cervix is favorable and was discussed in great detail she is positive for group B strep PMFSH Past Medical History Medical History Sleep apnea treated with continuous positive airway pressure (CPAP) UTI (urinary tract infection) Surgical History Surgical History Previous section Rozel teeth extracted Family History Family History Other No pertinent family history Social History Social History Smoking status: Never smoker Second hand tobacco smoke exposure: No Alcohol intake: current Drinks per week: 1 Substance use: never Substance use type: marijuana Other substance usage details: EDIBLES Lack of Transportation: No Lack of Food: Never True Current Housing: I Have Housing Concerned About Future Housing: No Difficulty Paying Gas/Electric Bills: No Difficulty Paying for Meds: No Currently Unemployed: No Education: High School Diploma/GED Difficulty w/ Childcare or Family Care: No Living arrangements: with family Gender identity (if verbalized by the patient): Female Spiritual care concerns: No Meds Home Medications and Allergies Home Medications Medication Instructions Recorded Confirmed Type docosahexaenoic acid 200 mg 200 mg PO DAILY 01/22/23 06/08/23 History capsule ( DHA) Allergies Allergy/AdvReac Type Severity Reaction Status Date / Time No Known Allergies Allergy Verified 06/08/23 12:26 Exam Const: General: cooperative, healthy appearing, comfortable and overweight Orientation/consciousness: oriented to person, oriented to place and oriented to time HENMT: Head: normal to inspection Resp: Effort & Inspection: normal respiratory effort Cardio: Rate: regular rate Rhythm: regular rhythm Heart sounds: S1 normal heart sound present and S2 normal heart sound present GI: Inspection: normal to inspection ( gravid soft uterus) : External Female Exam: normal external appearance Speculum Exam - Vagina: normal appearance of the vagina Speculum Exam - Cervix: normal appearance of the cervix ( cervix /. AROM clear. FHTs reassuring. IUPC placed) H&P: Results Labs Labs: Short CBC 06/24/23 Range/Units 06:06 WBC 10.5 H (4.5-10.0) K/mm3 Hgb 12.5 (12.0-15.0) g/dL Hct 37.2 (37.0-47.0) % Plt Count 141 L (150-375) k/mm3 Assessment and Plan Assessment and plan (1) Term : Code(s): Z34.90 - Encounter for supervision of normal , unspecified, unspecified trimester Status: Acute (2) Previous section: Code(s): Z98.891 - History of uterine scar from previous surgery Status: Acute (3) Positive testing for group B Streptococcus: Code(s): B95.1 - Streptococcus, group B, as the cause of diseases classified elsewhere Status: Acute Plan medical induction of labor. Spontaneous vaginal delivery is expected. discussed. Group B strep prophylaxis. she has an epidural candidate
[2023-06-24] MEDS: LACTATED RINGERS 1,000 ML 125 ML IV CONT ×2 (06:37→08:45)
[2023-06-24] MEDS: AMPICILLIN 2 GM/NS 100 ML 2 GM/100 ML BAG IVPB (06:37)
--- NOTE | 2023-06-24 06:40 | LDADM ---
This patient, Maria Victoria Wong, was admitted to Labor/Delivery/Recovery 102 on 06/24/23 at 05:50. Plans for labor, pain management and were discussed with patient. Patient/family oriented to hospital policies and general routines including ID bracelet, bed and alarms, visiting hours, pain management, procedures, bathroom and other care routines, personal items, smoking policy, room service/diet and guest tray routines, infant security routines, and visiting hours. Patient/Family are encouraged to report perceived risks to care and to ask questions if they do not understand what they are told or what they should do. See [facility] for further documentation.
--- NOTE | 2023-06-24 07:35 | WPDANESEPP ---
Anes - Eval Pre Procedure Procedure: labor epidural Date/Time: 06/24/23 07:35 Surgeon: parul Preop Diagnosis: pain during labor Pre Op Diagnosis: Induction of Labor Patient Data Age: 33 Gender: F Height: 1.6 m Weight: 105 kg Last Vital Signs Temp 36.6 C 06/24/23 06:39 Pulse 86 06/24/23 06:45 Resp 18 06/24/23 06:39 BP 115/74 06/24/23 06:45 O2 Del Method Room Air 06/24/23 06:15 Allergies Allergy/AdvReac Type Severity Reaction Status Date / Time No Known Allergies Allergy Verified 06/08/23 12:26 Home Medications Medication Instructions Recorded Confirmed Type docosahexaenoic acid 200 mg 200 mg PO DAILY 01/22/23 06/08/23 History capsule ( DHA) Laboratory Tests 06/24/23 06:06 WBC 10.5 H K/mm3 (4.5-10.0) RBC 4.28 M/mm3 (4.2-5.4) Hgb 12.5 g/dL (12.0-15.0) Hct 37.2 % (37.0-47.0) MCV 86.9 fl (80-100) MCH 29.2 pg (26-34) MCHC 33.6 g/dl (32-36) RDW 14.3 % (11.5-14.5) Plt Count 141 L k/mm3 (150-375) MPV 12.6 H fl (7.4-10.4) Immature Gran % (Auto) 0.6 H % (0-0.5) Neut % (Auto) 74.7 H % (45.5-73.1) Lymph % (Auto) 17.9 L % (18.3-44.2) [place] % (Auto) 5.8 % (2.6-8.5) Eos % (Auto) 0.7 % (0-4.4) Baso % (Auto) 0.3 % (0.2-1.2) Lymph # (Auto) 1.88 K/mm3 (0.9-3.2) [place] # (Auto) 0.6 K/mm3 (0.1-0.6) Eos # (Auto) 0.1 K/mm3 (0-0.3) Baso # (Auto) 0.0 K/mm3 (0.0-0.1) Abs Immat Gran (auto) 0.06 H K/mm3 (0.00-0.031) Absolute Neuts (auto) 7.9 H K/mm3 (1.3-6.7) Absolute Nucleated RBC 0.000 K/mm3 (0.0-0.012) Nucleated RBC % 0.0 % (0.0-0.2) RPR Pending Blood Type A Negative Antibody Screen Negative Patient hx anesthesia problems: none Family hx anesthesia problems: none Results Review: All pre-operative results and documents have been reviewed as part of the pre-operative evaluation. FOR[facility], [facility] Past Medical History Medical History (Updated 06/24/23 @ 07:36 by Parvin Dickey CRNA) Morbid obesity with BMI of 40.0-44.9, adult Sleep apnea treated with continuous positive airway pressure (CPAP) UTI (urinary tract infection) Surgical History Surgical History (Updated 06/24/23 @ 06:40 by Denilson Acosta MD) Previous section [place] teeth extracted Family History Family History Other No pertinent family history Social History Social History Smoking status: Never smoker Second hand tobacco smoke exposure: No Alcohol intake: current Drinks per week: 1 Substance use: never Substance use type: marijuana Other substance usage details: EDIBLES Do You Feel Safe in your Home?: Yes Lack of Transportation: No Lack of Food: Never True Current Housing: I Have Housing Concerned About Future Housing: No Difficulty Paying Gas/Electric Bills: No Difficulty Paying for Meds: No Currently Unemployed: No Education: High School Diploma/GED Difficulty w/ Childcare or Family Care: No Living arrangements: with family Gender identity (if verbalized by the patient): Female Spiritual care concerns: No Exam Day of Procedure 06/24/23 07:35
[2023-06-24 09:11] LABS: Rapid Plasma Reagin Non-Reactive (NonReactive)
[2023-06-24] MEDS: AMPICILLIN 1 GM/NS 50 ML 1 GM/50 ML BAG IVPB (10:17)
[2023-06-24] MEDS: ONDANSETRON INJ 4 MG/2 ML VIAL IV PUSH (10:20)
[2023-06-24] MEDS: OXYTOCIN 30 UNITS/NS 500 ML 30 UNITS/500 ML BAG 999 UNITS IV CONT (11:38)
--- NOTE | 2023-06-24 11:47 | PM.OBPRVD ---
OB - Vaginal Delivery Note Procedure Delivery date: 06/24/23 Events: Elective Induction of Labor Induction method: AROM Delivery augmentation: Pitocin Delivery monitor: External FHT and Internal Uterine Route of delivery: Episiotomy description: None Laceration Description: Perineal - 1st Degree Delivery repair: vicryl Specimen: No Quantitative Blood Loss (ml): 61 Anesthesia type: Epidural Disposition: Floor Narrative: ampicillin x2 for group B strep positivity [place] Baby Date of : 06/24/23 Time of : 11:33 Weeks of gestation at delivery: 40 Infant gender: Female presentation: vertex position: Right Occiput Anterior Placenta delivery description: Spontaneous Cord Vessel Description: 3 Vessels score one minute: 8 score five minutes: 8
--- NOTE | 2023-06-24 11:50 | P.DS_ITS ---
DS: Admitting Diagnosis Discharge Date Admitting Diagnosis term / previous section /p positive group B strep DS: Discharge Diagnosis Discharge Diagnosis (1) Positive testing for group B Streptococcus: Code(s): B95.1 - Streptococcus, group B, as the cause of diseases classified elsewhere Status: Acute (2) Previous section: Code(s): Z98.891 - History of uterine scar from previous surgery Status: Acute (3) Term : Code(s): Z34.90 - Encounter for supervision of normal , unspecified, unspecified trimester Status: Acute DS: Summary Hospital Course Reason for hospitalization: patient was admitted for induction of labor at 40-,1/7 weeks gestation. She had a previous successful . She is positive for group B strep Hospital Course: her hospital course unremarkable. She remained afebrile. She was up, voiding the difficulty in eating regular diet, ambulating, generally without complaints. Time Spent with Patient Time attestation: Total time spent providing and/or coordinating discharge services: DS: Data Data Completed and Pending Labs on day of discharge: Labs from last 24 hours 06/24/23 06:06 WBC 10.5 H RBC 4.28 Hgb 12.5 Hct 37.2 MCV 86.9 MCH 29.2 MCHC 33.6 RDW 14.3 Plt Count 141 L MPV 12.6 H Immature Gran % (Auto) 0.6 H Neut % (Auto) 74.7 H Lymph % (Auto) 17.9 L [place] % (Auto) 5.8 Eos % (Auto) 0.7 Baso % (Auto) 0.3 Lymph # (Auto) 1.88 [place] # (Auto) 0.6 Eos # (Auto) 0.1 Baso # (Auto) 0.0 Abs Immat Gran (auto) 0.06 H Absolute Neuts (auto) 7.9 H Absolute Nucleated RBC 0.000 Nucleated RBC % 0.0 RPR Non-reactive Blood Type A Negative Antibody Screen Negative Discharge Plan Discharge Attending physician on discharge: Denilson Lema Discharging Clinician: Denilson Lema Patient Disposition: Home, Self-Care Activity: may shower, no straining and pelvic rest Diet: heart healthy Wound Care Instructions: follow printed instructions Patient Instructions: Antibiotic Form Stand Alone Forms: General Discharge Information Follow-up/Referrals: Denilson Lema MD [Physician] - Discharge Medications: Continued DHA 200 mg capsule 200 mg PO DAILY Date of admission: 06/24/23 05:50 Primary Care Provider: Dez Olmstead Admitting Provider: Denilson Lema Attending physician on admission: Denilson Lema Condition: Stable
[2023-06-24] MEDS: OXYTOCIN 30 UNITS/NS 500 ML 30 UNITS/500 ML BAG 125 UNITS IV CONT (12:04)
[2023-06-24] MEDS: BENZOCAINE 20% AER SPR (*SP) 56 GM CAN 1 SPRAY TOPICAL (14:00)
[2023-06-24] MEDS: WITCH HAZEL 40 PADS 1 PAD TOPICAL (14:00)
--- NOTE | 2023-06-24 14:16 | OBPPTRN ---
Patient transferred to post room #285 via wheelchair. Support person present. Oriented to unit, room, information board, rooming in, admission packet and security measures. Patient verbalizes understanding.
[2023-06-24] MEDS: IBUPROFEN 600 MG TABLET PO ×2 (14:23→22:18)
[2023-06-25 03:41] VITALS: BP 104/62; PULSE 62; RESP 18; TEMP 36.6; O2SAT 98
[2023-06-25 04:47] LABS: Hematocrit 35.2 % (37.0-47.0); Hemoglobin 11.2 g/dL (12.0-15.0)
--- NOTE | 2023-06-25 06:49 | P.PNOB_ITS ---
OB - PN: Subj Subjective Date/time seen: 06/25/23 06:49 Patient comments: no complaints and pain well controlled baby status: doing well OB - PN: Obj Data Labs 06/25/23 03:33 Labs: Laboratory Results - last 24 hr 06/24/23 06/25/23 06:06 03:33 Hgb 11.2 L Hct 35.2 L RPR Non-reactive Blood Type A Negative A Negative Antibody Screen Negative Negative Baby's Blood Type A pos Baby's HONEY Negative OB - PN A/P Plan day: 1 Plan: routine care Time Spent With Patient Time: Total time spent is greater than 50% in coordination of care (as documented) at patient's floor/unit and/or counseling patient: Time with patient: less than 15 minutes Exam Const: General: cooperative, healthy appearing and comfortable Nutritional Appearance: average body habitus Orientation/consciousness: oriented to per son, oriented to place and oriented to time HENMT: Head: normal to inspection Resp: Effort & Inspection: normal respiratory effort Cardio: Rate: regular rate Rhythm: regular rhythm Heart sounds: S1 normal heart sound present and S2 normal heart sound present GI: Inspection: normal to inspection
[2023-06-25] MEDS: DOCUSATE SODIUM 100 MG CAPSULE PO (08:03)
[2023-06-25] MEDS: MULTIVIT/MIN/PREN/FOL AC/IRON TABLET 1 TAB PO (08:03)
[2023-06-25] MEDS: IBUPROFEN 600 MG TABLET PO ×2 (08:03→22:02)
[2023-06-25 08:05] VITALS: BP 109/68; PULSE 67; RESP 16; TEMP 36.4; O2SAT 99
[2023-06-25] MEDS: RHO(D) IMMUNE GLOBULIN 300 MCG/2 ML SYRINGE IM (09:45)
--- NOTE | 2023-06-25 11:48 | WPDANLDPN2 ---
Anes-Prog Note L&D Date/Time: 06/25/23 11:48 Neuro status: Neuro function grossly intact. Cardiovascular status: normal Respiratory status: normal Airway patency: baseline Mental status: baseline Post-Op hydration status: normal Vital Signs: Last Vital Signs Temp 36.4 C L 06/25/23 08:05 Pulse 67 06/25/23 08:05 Resp 16 06/25/23 08:05 BP 109/68 06/25/23 08:05 Pulse Ox 99 06/25/23 08:05 O2 Del Method Room Air 06/24/23 06:15 Pain score (VAS): 0 Post-procedural complaints: none Patient feedback: Patient satisfied with anesthetic care.
--- NOTE | 2023-06-25 13:49 | PC.NURSE ---
[id number] Mother verbalizes she is able to independently latch with appropriate positioning and alignment. She denies any nipple discomfort and is responsively . Infant is currently meeting outcomes for weight, output, jaundice, blood sugar and feeding frequencies of 8-12 times in 24 hours. Mother also supplements with formula per her preference after some feedings. Mother declines any additional assistance or education at this time. Mother is encouraged to call for assistance if her doesn?t latch, pain with latching, questions or concerns. Mother voiced understanding of information shared along with the mom/baby guide for an additional resource. Reported to the Primary RN.
[2023-06-25 20:08] VITALS: BP 115/74; PULSE 71; RESP 20; TEMP 36.5; O2SAT 99
--- NOTE | 2023-06-26 06:17 | PM.OBPNVD ---
OB - PN: Subj Subjective Date/time seen: 06/26/23 06:17 Patient comments: no complaints and pain well controlled baby status: doing well and nursing well OB - PN: Obj Data Labs 06/25/23 03:33 Labs: Laboratory Results - last 24 hr 06/25/23 03:33 Blood Type A Negative Antibody Screen Negative Screen Negative Baby's Blood Type A pos Baby's HONEY Negative Doses of RhIg Required 1 OB - PN A/P Plan day: 2 Plan: routine care, discharge home and follow up 6 weeks Time Spent With Patient Time: Total time spent is greater than 50% in coordination of care (as documented) at patient's floor/unit and/or counseling patient: Time with patient: less than 15 minutes Exam Const: General: cooperative, healthy appearing and comfortable Nutritional Appearance: average body habitus Orientation/consciousness: oriented to person, oriented to place and oriented to time Resp: Effort & Inspection: normal respiratory effort Cardio: Rate: regular rate Rhythm: regular rhythm Heart sounds: S1 normal heart sound present and S2 normal heart sound present GI: Inspection: normal to inspection
[2023-06-26 08:05] VITALS: BP 113/67; PULSE 67; RESP 16; TEMP 36.5; O2SAT 100
--- NOTE | 2023-06-26 08:05 | PC.NURSE ---
Patient instructed to view the discharge video Mother [facility] Baby Care, The First Two Weeks . Patient was given the opportunity and encouraged to ask questions. Patient verbalized understanding of information shared and has been given the mother/baby guide for home reference.
[2023-06-26] MEDS: DOCUSATE SODIUM 100 MG CAPSULE PO (08:17)
[2023-06-26] MEDS: IBUPROFEN 600 MG TABLET PO (08:17)
[2023-06-26] MEDS: MULTIVIT/MIN/PREN/FOL AC/IRON TABLET 1 TAB PO (08:18)
--- NOTE | 2023-06-26 12:12 | PC.NURSE ---
1130 Mother verbalizes she is able to independently latch infant with appropriate positioning and alignment. She denies any nipple discomfort and is responsively . is currently meeting outcomes for weight, output, jaundice, blood sugar and feeding frequencies of 8-12 times in 24 hours. Mother declines any additional assistance or education at this time. Mother is encouraged to call for assistance if her doesn?t latch, pain with latching, questions or concerns. Mother voiced understanding of information shared along with the mom/baby guide for an additional resource. Reported to the Primary RN.
== END 2023-06-26 12:15 | disposition home or self-care (01) | DRG 807 ==
LOC: ANHLDR 11:52 → ANHOB2 14:22
PROVIDERS: Admitting Provider Obstetrics & Gynecology; PCP Emergency Medicine; Visit Provider Obstetrics & Gynecology
DX: O99.824 Streptococcus B carrier state complicating childbirth (principal); Z37.0 Single live birth; Z3A.40 40 weeks gestation of pregnancy; O70.0 First degree perineal laceration during delivery; O34.211 Maternal care for low transverse scar from previous cesarean delivery
CPT/HCPCS: 36415; 85014; 85018; 85025; 85461; 86592; 86850; 86900; 86901; 90384; A9270; J0290; J2405; J2590; J2790; J2795; J7120

== ENCOUNTER 2024-01-19 14:14 | Outpatient (CLI) | payer OTHER, SELFPAY ==
--- NOTE | ~2024-01-19 | XR_ITS ---
EXAM: XR foot RT min 3V, XR ankle RT min 3V DATE: 01/19/2024 14:36 (accession [id number]), 01/19/2024 14:38 (accession [id number]) HISTORY: S99.911A - Unspecified injury of right ankle, initial enc... . COMPARISON: None available. FINDINGS: Normal mineralization. No fracture or dislocation. No lytic or blastic lesion. Achilles an d plantar enthesopathy. No erosion or periosteal change. Soft tissues within normal limits. IMPRESSION: No acute osseous finding in the right ankle or foot. Reviewed, dictated and finalized at location K. [facility] IMPRESSION: No acute osseous finding in the right ankle or foot.
== END 2024-01-19 14:15 | disposition home or self-care (01) ==
LOC: GOSHIMG 14:15
PROVIDERS: PCP Nurse Practitioner Family; Visit Provider Nurse Practitioner Family
DX: S99.911A Unspecified injury of right ankle, initial encounter (principal); S99.912A Unspecified injury of left ankle, initial encounter; X58.XXXA Exposure to other specified factors, initial encounter
CPT/HCPCS: 73610; 73630

== ENCOUNTER 2024-07-22 14:47 | Outpatient (CLI) | payer OTHER, SELFPAY ==
--- NOTE | ~2024-07-22 | XR_ITS ---
XR wrist RT min 3V 07/22/2024 15:04 INDICATION: Right wrist pain PROCEDURE: 4 views right wrist COMPARISON: No prior studies for comparison. FINDINGS: Fracture, dislocation or subluxation is not identified. The soft tissues appear within norm al limits. No foreign bodies are identified. IMPRESSION: 1: NO ACUTE BONE OR JOINT ABNORMALITY IDENTIFIED. Reviewed, dictated and finalized at location A.
== END 2024-07-22 14:48 | disposition home or self-care (01) ==
PROVIDERS: PCP Nurse Practitioner Family; Visit Provider Nurse Practitioner Family
DX: M25.531 Pain in right wrist (principal)
CPT/HCPCS: 73110